=== PATIENT | female | born 1955 | race Caucasian/White ===

== ENCOUNTER 2016-09-21 10:05 | Observation (INO) ==
--- NOTE | 2016-09-21 10:28 | Emergency Department Note ---
Disposition Clinical Impression: Colitis, Tachycardia, Abdominal pain, Hypokalemia, Uterine fibroid, Hiatal hernia, Cough Disposition: Admitted As Inpatient Condition: Good General Adult HPI - General Chief complaint: ED Abdominal Pain Stated complaint: Diverticulitis/sick to my stomach Time Seen by Provider: 09/21/16 10:27 Source: patient Limitations: no limitations - History of Present Illness HPI Narrative: 60-year-old female reports in the outpatient clinic, there is concern for potential diverticulitis. The patient states she has had recurrent diarrhea or bloody stool for the last 2 weeks but has had increasing pain over the last day or 2. She reports she ate some Cod and green beans on Monday and then developed vomiting. She has had persistent abdominal discomfort. She has not had recurrent emesis however. No bloody emesis. She states she has a history of diverticulitis and colitis and has had to be admitted to the hospital for same. There are reports of fever. The patient has had a slight cough but no chest pain or shortness of breath. She describes lower abdominal pain more in the midline. There is no history of anticoagulant therapy. No trauma or acute back pain or syncope. The patient denies any recent travel or change in dietary habits. There is no history of urinary symptoms or acute back pain. Onset (ago): day(s) Pain Scale: 0 - Related Data Home Medications Medication Instructions Recorded Confirmed Bimatoprost [Lumigan] 1 appl BOTH EYES DAILY 09/21/16 09/21/16 Brinzolamide 1% [Azopt] 1 drop BOTH EYES TID 09/21/16 09/21/16 Calcium Carbonate/Vitamin D3 1 tab PO BID 09/21/16 09/21/16 [Calcium 1,000 + D3 Caplet] Cholecalciferol (Vitamin D3) 1,000 unit PO BID 09/21/16 09/21/16 [Vitamin D] Dexlansoprazole [Dexilant] 60 mg PO DAILY 09/21/16 09/21/16 FLUoxetine HCl [PROzac] 20 mg PO BID 09/21/16 09/21/16 Lamotrigine [Lamictal] 50 mg PO DAILY 09/21/16 09/21/16 Mesalamine [Pentasa] 1,000 mg PO TID 09/21/16 09/21/16 Raloxifene [Evista] 60 mg PO DAILY 09/21/16 09/21/16 Telmisartan/Hydrochlorothiazid 1 tab PO DAILY 09/21/16 09/21/16 [Micardis Hct 40-12.5 mg Tablet] Allergies Allergy/AdvReac Type Severity Reaction Status Date / Time Minocycline [From Minocin] Allergy Severe Hypertensio Verified 09/21/16 14:13 n All systems ED: reviewed and negative except as stated. Past Medical History - Past Medical History Medical history: Reports: GERD, hypertension, other Surgical history: Reports: breast surgery Psychiatric history: Reports: no psych history - Social History Smoking Status: Never smoker Smokeless Tobacco Status: No Alcohol use: Reports: none Drug use: Reports: none Physical Exam - General Limitations: no limitations General appearance: alert, in no apparent distress - Head Head exam: atraumatic, normocephalic, normal inspection - Eye Eye exam: Present: normal appearance, PERRL, EOMI - ENT ENT exam: normal exam, normal oropharynx, mucous membranes moist - Neck Neck exam: Present: normal inspection, full ROM, trachea midline - Chest Chest inspection: Present: symmetric chest wall rise. Absent: tenderness - Respiratory Respiratory exam: Present: normal lung sounds bilaterally. Absent: respiratory distress - Cardiovascular Cardiovascular exam: Present: regular rate, normal rhythm, normal heart sounds - Abdominal Exam Abdominal exam: Present: soft, tenderness, normal bowel sounds. Absent: distention, guarding, rebound, rigidity, trauma, pulsatile mass - Extremities Exam Extremities exam: Present: normal inspection, full ROM. Absent: tenderness, normal capillary refill, pedal edema, joint swelling, calf tenderness - Back Exam Back exam: Present: normal inspection, full ROM. Absent: tenderness, CVA tenderness (R), CVA tenderness (L), vertebral tenderness - Neurological Exam Neurological exam: Present: alert, oriented X3, CN II-XII intact. Absent: motor sensory deficit - Psychiatric Psychiatric exam: Present: normal affect, normal mood - Skin Skin exam: Present: warm, dry, intact, normal color. Absent: rash, cyanosis, diaphoresis, erythema, pallor, mottled Course Vital Signs Temperature 99.4 F 09/21/16 10:06 Pulse Rate 99 09/21/16 10:06 Respiratory Rate 16 09/21/16 10:06 Blood Pressure 108/69 09/21/16 10:06 O2 Sat by Pulse Oximetry 96 09/21/16 10:06 Temperature 99.9 F H 09/21/16 14:41 Pulse Rate 92 09/21/16 14:41 Respiratory Rate 14 09/21/16 14:41 Blood Pressure 108/71 09/21/16 14:41 O2 Sat by Pulse Oximetry 94 L 09/21/16 14:41 Oxygen Delivery Oxygen Delivery Room Air Medical Decision Making - MDM Narrative Medical decision making narrative: The patient was given IV fluids in the ED. She remained somewhat tachycardic. She appears to have colitis. Flagyl and Cipro were ordered. A second liter of fluid was ordered. Potassium chloride by mouth as well. The patient is currently stable. Given that she is elderly, appears to have a low-grade fever and tachycardia with what appears to be a source of infection I have discussed the case with the hospitalist fashion illustrator who has accepted the patient to their care. The patient's serum lactate is negative. She does not appear to meet sepsis protocol at this time. Clostridium testing has been ordered. - Lab Data Lab results reviewed: Yes I reviewed the patient's lab results. Result diagrams: 09/21/16 10:33 09/21/16 10:33 Lab Results 09/21/16 09/21/16 09/21/16 Range/Units 10:33 10:33 10:33 WBC 8.8 (4.3-11.1) K/mcL RBC 5.38 H (3.82-4.97) M/mcL Hgb 15.4 (11.5-15.4) g/dL Hct 46.0 H (35.3-44.9) % MCV 85.5 (83.0-100.0) fL MCH 28.6 (28.0-33.3) pg MCHC 33.5 (31.6-35.5) g/dL RDW 13.3 (11.5-14.5) % Plt Count 354 (140-400) K/mcL MPV 9.6 (9.4-12.4) fL Immature Gran % 0.6 (0-4) % Seg Neutrophils % 81.7 % Lymphocytes % 13.7 % Monocytes % 2.7 % Eosinophils % 1.1 % Basophils % 0.2 % Neutrophils # 7.1 (1.6-8.9) K/mcL Lymphocytes # 1.2 (0.6-4.6) K/mcL Monocytes # 0.2 (0.0-1.3) K/mcL Eosinophils # 0.1 (0.0-0.6) K/mcL Basophils # 0.0 (0.0-0.2) K/mcL Sodium 138 (136-145) mEq/L Potassium 3.2 L (3.5-4.5) mEq/L Chloride 100 (98-109) mEq/L Carbon Dioxide 26 (19-29) mEq/L BUN 14 (7-20) mg/dL Creatinine 0.98 (0.57-1.11) mg/dL Est GFR ( Amer) > 60 (> 60) Est GFR (Non-Af Amer) 58 L (> 60) BUN/Creatinine Ratio 14 (6-26) Glucose 97 (70-99) mg/dL Calculated Osmolality 286 (280-300) Calcium 9.1 (8.6-10.8) mg/dL Total Bilirubin 0.7 (0.2-1.2) mg/dL Direct Bilirubin 0.3 (0.0-0.5) mg/dL Indirect Bilirubin 0.4 (0.0-1.2) mg/dL AST 21 (5-34) Units/L ALT 22 (0-55) Units/L Alkaline Phosphatase 72 (38-126) Units/L C-Reactive Protein 26 H (Less than 5) mg/L Serum Total Protein 7.7 (6.0-8.3) g/dL Albumin 4.0 (3.5-5.0) g/dL Globulin 3.7 H (2.4-3.5) g/dL Albumin/Globulin Ratio 1.1 (1.1-2.2) Lipase 17 (8-78) Units/L Urine Color Yellow (Yellow) Urine Clarity Cloudy A (Clear) Urine pH 6.0 (5.0-8.0) pH Units Ur Specific [place] 1.024 (1.010-1.025) Urine Protein Negative (Neg-Trace) mg/dL Urine Glucose (UA) Normal (Normal) mg/dL Urine Ketones Negative (Negative) mg/dL Urine Blood Negative (Negative) Urine Nitrite Negative (Negative) Urine Bilirubin Negative (Negative) Urine Urobilinogen Normal (Normal) mg/dL Ur Leukocyte Esterase Negative (Negative) Urine Microscopic RBC 0-3 (0-3) per hpf Urine Microscopic WBC 0-3 (0-3) per hpf Ur Squamous Epith Cells Many H (None-Few) per lpf Urine Bacteria None Seen (None-Few) per hpf Hyaline Casts None Seen (None-Few) per lpf Ur Culture Indicated? NO (NO) Specimen Rejected 09/21/16 Range/Units 11:05 WBC (4.3-11.1) K/mcL RBC (3.82-4.97) M/mcL Hgb (11.5-15.4) g/dL Hct (35.3-44.9) % MCV (83.0-100.0) fL MCH (28.0-33.3) pg MCHC (31.6-35.5) g/dL RDW (11.5-14.5) % Plt Count (140-400) K/mcL MPV (9.4-12.4) fL Immature Gran % (0-4) % Seg Neutrophils % % Lymphocytes % % Monocytes % % Eosinophils % % Basophils % % Neutrophils # (1.6-8.9) K/mcL Lymphocytes # (0.6-4.6) K/mcL Monocytes # (0.0-1.3) K/mcL Eosinophils # (0.0-0.6) K/mcL Basophils # (0.0-0.2) K/mcL Sodium (136-145) mEq/L Potassium (3.5-4.5) mEq/L Chloride (98-109) mEq/L Carbon Dioxide (19-29) mEq/L BUN (7-20) mg/dL Creatinine (0.57-1.11) mg/dL Est GFR ( Amer) (> 60) Est GFR (Non-Af Amer) (> 60) BUN/Creatinine Ratio (6-26) Glucose (70-99) mg/dL Calculated Osmolality (280-300) Calcium (8.6-10.8) mg/dL Total Bilirubin (0.2-1.2) mg/dL Direct Bilirubin (0.0-0.5) mg/dL Indirect Bilirubin (0.0-1.2) mg/dL AST (5-34) Units/L ALT (0-55) Units/L Alkaline Phosphatase (38-126) Units/L C-Reactive Protein (Less than 5) mg/L Serum Total Protein (6.0-8.3) g/dL Albumin (3.5-5.0) g/dL Globulin (2.4-3.5) g/dL Albumin/Globulin Ratio (1.1-2.2) Lipase (8-78) Units/L Urine Color (Yellow) Urine Clarity (Clear) Urine pH (5.0-8.0) pH Units Ur Specific [place] (1.010-1.025) Urine Protein (Neg-Trace) mg/dL Urine Glucose (UA) (Normal) mg/dL Urine Ketones (Negative) mg/dL Urine Blood (Negative) Urine Nitrite (Negative) Urine Bilirubin (Negative) Urine Urobilinogen (Normal) mg/dL Ur Leukocyte Esterase (Negative) Urine Microscopic RBC (0-3) per hpf Urine Microscopic WBC (0-3) per hpf Ur Squamous Epith Cells (None-Few) per lpf Urine Bacteria (None-Few) per hpf Hyaline Casts (None-Few) per lpf Ur Culture Indicated? (NO) Specimen Rejected Hemolyzed - Radiology Data Radiology results reviewed: Yes I reviewed the patient's radiology results.
[2016-09-21] MEDS ORDERED: 0.9 % Sodium Chloride 1,000 ML IVC ONE ×2 (10:29→13:25)
[2016-09-21 10:49] LABS: Basophils % 0.2 %; Eosinophils # 0.1 K/mcL (0.0-0.6); Eosinophils % 1.1 %; Hemoglobin 15.4 g/dL (11.5-15.4); Immature Granulocytes % 0.6 % (0-4); Lymphocytes # 1.2 K/mcL (0.6-4.6); Lymphocytes % 13.7 %; Mean Corpuscular HGB Conc 33.5 g/dL (31.6-35.5); Mean Corpuscular Hemoglobin 28.6 pg (28.0-33.3); Mean Corpuscular Volume 85.5 fL (83.0-100.0); Mean Platelet Volume 9.6 fL (9.4-12.4); Monocytes # 0.2 K/mcL (0.0-1.3); Monocytes % 2.7 %; Neutrophils # 7.1 K/mcL (1.6-8.9); Platelet Count 354 K/mcL (140-400); Red Blood Count 5.38 M/mcL (3.82-4.97); Red Cell Distribution Width 13.3 % (11.5-14.5); Segmented Neutrophils % 81.7 %
[2016-09-21 10:56] LABS: Bilirubin,Urine Negative (Negative); Blood,Urine Negative (Negative); Clarity,Urine Cloudy (Clear); Color,Urine Yellow (Yellow); Glucose,Urine (UA) Normal (Normal); Ketones,Urine Negative (Negative); Leukocyte Esterase,Urine Negative (Negative); Nitrite,Urine Negative (Negative); Protein,Urine Negative (Neg-Trace); Specific Gravity,Urine 1.024 (1.010-1.025); Urobilinogen,Urine Normal (Normal)
[2016-09-21 10:59] LABS: Bacteria,Urine None Seen per hpf (None-Few); Hyaline Casts,Urine None Seen per lpf (None-Few); RBC,Urine 0-3 per hpf (0-3); Squamous Epithelial Cell,Urine Many per lpf (None-Few); WBC,Urine 0-3 per hpf (0-3)
[2016-09-21 11:05] LABS: Alanine Aminotransferase 22 Units/L (0-55); Albumin/Globulin Ratio 1.1 (1.1-2.2); Alkaline Phosphatase 72 Units/L (38-126); Aspartate Amino Transferase 21 Units/L (5-34); BUN/Creatinine Ratio 14 (6-26); Bilirubin,Direct 0.3 mg/dL (0.0-0.5); Bilirubin,Indirect 0.4 mg/dL (0.0-1.2); Bilirubin,Total 0.7 mg/dL (0.2-1.2); Blood Urea Nitrogen 14 mg/dL (7-20); C-Reactive Protein 26 mg/L (Less than 5); Calcium 9.1 mg/dL (8.6-10.8); Carbon Dioxide 26 mEq/L (19-29); Chloride 100 mEq/L (98-109); Globulin 3.7 g/dL (2.4-3.5); Glucose 97 mg/dL (70-99); Lipase 17 Units/L (8-78); Osmolality,Calculated 286 (280-300); Potassium 3.2 mEq/L (3.5-4.5); Sodium 138 mEq/L (136-145); Total Protein 7.7 g/dL (6.0-8.3); eGFR For African Americans > 60 (> 60); eGFR For Non-African Americans 58 (> 60)
[2016-09-21] MEDS ORDERED: metroNIDAZOLE 500 MG TABLET PO ONE (13:24)
[2016-09-21] MEDS ORDERED: FLU VACC QS2016-17 36MOS UP/PF 0.5 ML SYRINGE IM ONE (14:29)
[2016-09-21] MEDS ORDERED: Potassium Chloride 20 MEQ, Lidocaine 1% 2 ML in D5% in Water 250 ML IVPB ONE (15:19)
[2016-09-21 16:00] LABS: Magnesium 1.9 mg/dL (1.6-2.6)
[2016-09-21] MEDS ORDERED: Naloxone 0.4 MG/ML INJ IVP PRN (16:35)
[2016-09-21] MEDS ORDERED: *HR* Morphine 2 MG/ML SYRINGE IVP PRN (16:38)
[2016-09-21] MEDS ORDERED: Ondansetron 4 MG/2 ML VIAL IVP PRN (16:38)
[2016-09-21] MEDS ORDERED: Acetaminophen 325 MG TABLET PO PRN (16:38)
--- NOTE | 2016-09-21 16:43 | Internal Med History&Physical ---
Date of Encounter: 09/21/16 Time of Encounter: 16:00 Assessment and Plan (1) Abdominal pain Current visit: Yes Status: Acute Acute flare of chronic colitis. Patient follows up with Dr. Burciaga for history of chronic colitis and takes Pentasa. CT of the abdomen and pelvis revealed marked wall edema and mucosal enhancement in the sigmoid colon, colonic diverticulosis. No diverticulitis, no allergies and phlegm, no abscess. wbc 8. normal lactic acid. Given the severity of colonic wall edema I will continue IV Flagyl and ciprofloxacin. IVF fluids. Nothing by mouth. clear liquids in the morning. Qualifiers: Abdominal location: lower abdomen, unspecified Qualified Code(s): R10.30 - Lower abdominal pain, unspecified (2) Acute colitis Current visit: Yes Status: Acute Plan as above. (3) HTN (hypertension) Current visit: Yes Status: Acute Holding home medications due to normal blood pressure. Qualifiers: Hypertension type: essential hypertension Qualified Code(s): I10 - Essential (primary) hypertension (4) Cough Current visit: Yes Status: Acute Secondary to hiatal hernia. (5) Hiatal hernia Current visit: Yes Status: Acute IV PPI. (6) Hypokalemia Current visit: Yes Status: Acute Replete . normal Mag (7) Uterine fibroid Current visit: No Status: Chronic Qualifiers: Uterine leiomyoma location: unspecified location Qualified Code(s): D25.9 - Leiomyoma of uterus, unspecified Internal Medicine - H&P: HPI Chief complaint: Abdominal pain for 2 weeks. Admitted From: Home Plans for Post Hospital Care: Home History of present illness: Ms. Dasilva is a 60 year old female with past medical history of hypertension and chronic colitis on Pentasa at home who presented with a chief complaint of abdominal pain for the past 2 weeks. Positive nausea and vomiting with poor oral intake. Intermittent bloody stools that is chronic. No chest pain. No shortness of breath. no other bleeding. No urinary complaints. Dry cough, only after vomiting. She reports multiple episodes of acute colitis in the past for which she has been hospitalized in [facility] facilities. Past Med Surg Social Fam HX - Past Medical History Medical history: GERD, hypertension, other Psychiatric history: no psych history - Past Surgical History Surgical History: breast surgery - Social History Smoking Status: Never smoker Smokeless Tobacco Status: No Alcohol use: none Drug use: none - Family History Mother Hx Family Cardiac Disorders: Yes (htn) Internal Medicine - H&P: Meds Bimatoprost [Lumigan] 1 appl BOTH EYES DAILY 09/21/16 [History] Brinzolamide 1% [Azopt] 1 drop BOTH EYES TID 09/21/16 [History] Calcium Carbonate/Vitamin D3 [Calcium 1,000 + D3 Caplet] 1 tab PO BID 09/21/16 [ History] Cholecalciferol (Vitamin D3) [Vitamin D] 1,000 unit PO BID 09/21/16 [History] Dexlansoprazole [Dexilant] 60 mg PO DAILY 09/21/16 [History] FLUoxetine HCl [PROzac] 20 mg PO BID 09/21/16 [History] Lamotrigine [Lamictal] 50 mg PO DAILY 09/21/16 [History] Mesalamine [Pentasa] 1,000 mg PO TID 09/21/16 [History] Raloxifene [Evista] 60 mg PO DAILY 09/21/16 [History] Telmisartan/Hydrochlorothiazid [Micardis Hct 40-12.5 mg Tablet] 1 tab PO DAILY 09/21/16 [History] Allergies Minocycline [From Minocin] Allergy (Severe, Verified 09/21/16 14:13) Hypertension All Systems PM: A 10-system review of systems was performed and is negative for pertinent findings except as documented above in the HPI. - Constitutional Vitals: Temp Pulse Resp BP Pulse Ox 99.9 F H 92 14 108/71 94 L 09/21/16 14:41 09/21/16 14:41 09/21/16 14:41 09/21/16 14:41 09/21/16 14:41 General appearance: Present: cooperative, A&O X 3, pleasant, no acute distress, answers questions appropriately - Eye Eye exam: Present: PERRL. Absent: sclera anicteric - ENT ENT exam: Present: mucous membranes moist - Neck Neck exam general surgery: Present: supple, trachea midline. Absent: lymphadenopathy - Respiratory Respiratory exam: Present: CTAB - Cardiovascular Cardiovascular exam: Present: RRR - GI/Abdominal GI/Abdominal exam: Present: normal bowel sounds, soft, tenderness. Absent: distended - Extremities Exam Extremities exam: Absent: pedal edema - Back Exam Back exam: Absent: CVA tenderness (L), CVA tenderness (R) - Neurological Exam Neurological exam: Present: alert, oriented X3 - Skin Skin exam: Absent: rash Internal Med - H&P Results - Labs CBC & Chem 7: 09/21/16 10:33 09/21/16 10:33
[2016-09-21] MEDS: Ringers Solution, Lactated 1,000 ML IVC SCH (17:45)
[2016-09-21] MEDS: Pantoprazole 40 MG VIAL IVP SCH (17:45)
[2016-09-21] MEDS: FLUoxetine 20 MG CAPSULE PO SCH (21:06)
[2016-09-21] MEDS: Latanoprost 2.5 ML BOTTLE BOTH EYES SCH (21:07)
[2016-09-21] MEDS: MetroNIDAZOLE 500 MG/100 ML 500 MG/100 ML BAG IVPB SCH (21:07)
[2016-09-21] MEDS: Brinzolamide 1% 10 ML BOTTLE BOTH EYES SCH (21:07)
[2016-09-21] MEDS: Mesalamine 250 MG CAPSULE.ER PO SCH (21:09)
[2016-09-22 05:14] LABS: Basophils % 0.3 %; Eosinophils # 0.1 K/mcL (0.0-0.6); Immature Granulocytes % 0.6 % (0-4); Mean Corpuscular HGB Conc 33.7 g/dL (31.6-35.5); Mean Corpuscular Hemoglobin 28.9 pg (28.0-33.3); Mean Corpuscular Volume 85.8 fL (83.0-100.0); Mean Platelet Volume 9.4 fL (9.4-12.4); Monocytes # 0.3 K/mcL (0.0-1.3); Monocytes % 4.8 %; Neutrophils # 5.3 K/mcL (1.6-8.9); Platelet Count 255 K/mcL (140-400); Red Blood Count 4.43 M/mcL (3.82-4.97); Red Cell Distribution Width 13.2 % (11.5-14.5); Segmented Neutrophils % 78.3 %
[2016-09-22 05:17] LABS: Hemoglobin 12.8 g/dL (11.5-15.4); INR 1.3; Prothrombin Time 13.9 Seconds (9.4-12.1)
[2016-09-22 05:25] LABS: Alanine Aminotransferase 17 Units/L (0-55); Albumin/Globulin Ratio 1.1 (1.1-2.2); Alkaline Phosphatase 52 Units/L (38-126); Aspartate Amino Transferase 18 Units/L (5-34); BUN/Creatinine Ratio 9 (6-26); Bilirubin,Total 0.4 mg/dL (0.2-1.2); Blood Urea Nitrogen 7 mg/dL (7-20); Carbon Dioxide 23 mEq/L (19-29); Chloride 106 mEq/L (98-109); Globulin 2.7 g/dL (2.4-3.5); Glucose 100 mg/dL (70-99); Magnesium 1.6 mg/dL (1.6-2.6); Osmolality,Calculated 286 (280-300); Potassium 3.2 mEq/L (3.5-4.5); Sodium 139 mEq/L (136-145); Total Protein 5.7 g/dL (6.0-8.3); eGFR For African Americans > 60 (> 60); eGFR For Non-African Americans > 60 (> 60)
[2016-09-22] MEDS: MetroNIDAZOLE 500 MG/100 ML 500 MG/100 ML BAG IVPB SCH ×3 (05:42→20:53)
[2016-09-22] MEDS: Pantoprazole 40 MG VIAL IVP SCH (05:43)
[2016-09-22] MEDS: Brinzolamide 1% 10 ML BOTTLE BOTH EYES SCH ×3 (08:43→20:54)
[2016-09-22] MEDS: Mesalamine 250 MG CAPSULE.ER PO SCH ×3 (08:44→20:54)
[2016-09-22] MEDS: FLUoxetine 20 MG CAPSULE PO SCH ×2 (08:45→20:53)
[2016-09-22] MEDS ORDERED: BIMATOPROST BOTH EYES SCH (09:00)
[2016-09-22] MEDS ORDERED: lamoTRIgine 25 MG TABLET PO SCH ×2 (09:00→21:00)
[2016-09-22] MEDS: Ringers Solution, Lactated 1,000 ML IVC SCH (11:04)
[2016-09-22] MEDS ORDERED: Magnesium Sulfate 2 GM in D5% in Water 100 ML IVPB ONE (15:05)
--- NOTE | 2016-09-22 17:06 | Internal Med Progress Note ---
<Hayden Titus Raphael - Last Filed: 09/22/16 20:28> Date of Encounter: 09/22/16 Time of Encounter: 09:30 - Assessment and plan (1) Acute colitis Current Visit: Yes Status: Acute Assessment and plan: Ms. Dasilva has a history of Ulcerative Colitis. She presented with blood per rectum with occasionally fevers and chill, poor oral intake. CT of the abdomen demonstrates inflammation of the colon and distal sigmoid diverticulosis. symptoms improving. Vitals stable since admission. Antibiotics: Ciprofloxacin and Zosyn. Plan: - Advance diet as tolerated. - Continue current antibiotic coverage. - Monitor WBC and H&H with am labs - Continue Pentasa (2) HTN (hypertension) Current Visit: Yes Status: Acute Assessment and plan: Blood pressure stable. Continue monitoring Blood pressure. Qualifiers: Hypertension type: essential hypertension Qualified Code(s): I10 - Essential (primary) hypertension (3) Hiatal hernia Current Visit: Yes Status: Acute Assessment and plan: Patient has a Hiatal hernia seen on imaging. This may be contributing to her GERD. No apparent obstruction. (4) DVT prophylaxis Current Visit: Yes Status: Acute Assessment and plan: Hold anticoagulation with recent GI bleeding. SCDs. - Subjective Interval history: Mrs. Dasilva has been seen and evaluated at patient bedside this am. She says she is feeling better but continues to have a dull ache pain in her abdomen. She denies any blood per rectum today but did have bleeding per rectum over the past 4 days. She says her last bowel movement was on Monday. She was sick and vomiting on Monday. She Has had poor PO intake since monday. She says she has tolerated jellow this morning. She denies any current fevers, chills or sweating but did have these symptoms over the past week. She says she has had episodes like this in the past. - Constitutional Vitals: Temp Pulse Resp BP Pulse Ox 98.7 F 75 16 123/97 97 09/22/16 15:43 09/22/16 15:43 09/22/16 15:43 09/22/16 15:43 09/22/16 15:43 General appearance: Present: cooperative, A&O X 3, pleasant, no acute distress, answers questions appropriately - Head Head exam: Present: atraumatic, normocephalic - Eye Eye exam: Present: PERRL, conjuntiva pink, sclera anicteric Pupils: Present: PERRL - Neck Neck exam general surgery: Present: supple, trachea midline. Absent: lymphadenopathy - Respiratory Respiratory exam: Present: CTAB. Absent: accessory muscle use, rales, rhonchi, wheezes - Cardiovascular Cardiovascular exam: Present: RRR, +S1, +S2. Absent: diastolic murmur, gallop, rubs, systolic murmur - GI/Abdominal GI/Abdominal exam: Present: normal bowel sounds, soft, tenderness, no peritoneal signs. Absent: distended Additional comments: slight tenderness to palpation of the abdomen diffusely without guarding. - Extremities Exam Extremities exam: Present: warm, radial pulses palpable and symetrical. Absent : calf tenderness, cyanotic, pedal edema - Neurological Exam Neurological exam: Present: alert, oriented X3, no focal deficits. Absent: pronater drift, facial droop, speech deficit - Psychiatric Psychiatric exam: Present: normal affect, normal mood - Skin Skin exam: Present: dry, intact Internal Medicine: Result - Labs CBC & Chem 7: 09/22/16 05:00 09/22/16 05:00 Labs: Short CBC 09/22/16 Range/Units 05:00 WBC 6.8 (4.3-11.1) K/mcL Hgb 12.8 D (11.5-15.4) g/dL Hct 38.0 (35.3-44.9) % Plt Count 255 (140-400) K/mcL Neutrophils # 5.3 (1.6-8.9) K/mcL BMP 09/22/16 05:00 Sodium 139 Potassium 3.2 L Chloride 106 Carbon Dioxide 23 BUN 7 Creatinine 0.80 Glucose 100 H Calcium 8.0 L Liver Function 09/22/16 Range/Units 05:00 Total Bilirubin 0.4 (0.2-1.2) mg/dL AST 18 (5-34) Units/L ALT 17 (0-55) Units/L Alkaline Phosphatase 52 (38-126) Units/L Albumin 3.0 L D (3.5-5.0) g/dL - ABG Interpretation ABG results: PT/INR, D-dimer PT 13.9 Seconds (9.4-12.1) H 09/22/16 05:00 Consult Discharge Plan - Plan Referrals: Osvaldo Burciaga DO [Primary Care Provider] - <Bradley Hartman Lynnette - Last Filed: 09/23/16 07:25> Date of Encounter: 09/23/16 - Constitutional Vitals: Temp Pulse Resp BP Pulse Ox 98.4 F 79 16 107/68 94 L 09/23/16 04:39 09/23/16 04:39 09/23/16 04:39 09/23/16 04:39 09/23/16 04:39 Internal Medicine: Result - Labs CBC & Chem 7: 09/23/16 04:55 09/23/16 04:55 Labs: Short CBC 09/23/16 Range/Units 04:55 WBC 6.0 (4.3-11.1) K/mcL Hgb 13.2 (11.5-15.4) g/dL Hct 39.2 (35.3-44.9) % Plt Count 281 (140-400) K/mcL Neutrophils # 4.5 (1.6-8.9) K/mcL BMP 09/23/16 04:55 Sodium 138 Potassium 3.3 L Chloride 105 Carbon Dioxide 24 BUN 7 Creatinine 0.84 Glucose 103 H Calcium 8.1 L Liver Function 09/23/16 Range/Units 04:55 Total Bilirubin 0.2 (0.2-1.2) mg/dL AST 19 (5-34) Units/L ALT 16 (0-55) Units/L Alkaline Phosphatase 53 (38-126) Units/L Albumin 3.1 L (3.5-5.0) g/dL - ABG Interpretation ABG results: PT/INR, D-dimer PT 13.9 Seconds (9.4-12.1) H 09/22/16 05:00 - Attending Attestation I examined this patient and my medical decision-making was reviewed with the TIME CHECKER/PA/Advanced Practice Nurse/Resident Physician. I agree with the documented findings, disposition and treatment plan as described except to the extent set forth below. Continue with cipro and flagyl (patient not on zosyn). Advance diet as tolerated. D/W patient.
[2016-09-22] MEDS: lamoTRIgine 25 MG TABLET PO SCH (20:53)
[2016-09-22] MEDS: Latanoprost 2.5 ML BOTTLE BOTH EYES SCH (20:54)
[2016-09-23] MEDS: MetroNIDAZOLE 500 MG/100 ML 500 MG/100 ML BAG IVPB SCH ×3 (05:26→20:55)
[2016-09-23 06:15] LABS: Basophils % 0.2 %; Eosinophils # 0.1 K/mcL (0.0-0.6); Eosinophils % 0.8 %; Hematocrit 39.2 % (35.3-44.9); Hemoglobin 13.2 g/dL (11.5-15.4); Immature Granulocytes % 0.3 % (0-4); Lymphocytes # 1.1 K/mcL (0.6-4.6); Lymphocytes % 18.1 %; Mean Corpuscular HGB Conc 33.7 g/dL (31.6-35.5); Mean Corpuscular Hemoglobin 28.5 pg (28.0-33.3); Mean Corpuscular Volume 84.7 fL (83.0-100.0); Monocytes # 0.4 K/mcL (0.0-1.3); Monocytes % 5.8 %; Neutrophils # 4.5 K/mcL (1.6-8.9); Platelet Count 281 K/mcL (140-400); Red Blood Count 4.63 M/mcL (3.82-4.97); Red Cell Distribution Width 13.4 % (11.5-14.5); Segmented Neutrophils % 74.8 %
[2016-09-23 06:38] LABS: Alanine Aminotransferase 16 Units/L (0-55); Albumin 3.1 g/dL (3.5-5.0); Alkaline Phosphatase 53 Units/L (38-126); Aspartate Amino Transferase 19 Units/L (5-34); BUN/Creatinine Ratio 8 (6-26); Bilirubin,Total 0.2 mg/dL (0.2-1.2); Blood Urea Nitrogen 7 mg/dL (7-20); Calcium 8.1 mg/dL (8.6-10.8); Carbon Dioxide 24 mEq/L (19-29); Chloride 105 mEq/L (98-109); Glucose 103 mg/dL (70-99); Magnesium 2.3 mg/dL (1.6-2.6); Osmolality,Calculated 284 (280-300); Potassium 3.3 mEq/L (3.5-4.5); Sodium 138 mEq/L (136-145); Total Protein 6.1 g/dL (6.0-8.3); eGFR For African Americans > 60 (> 60); eGFR For Non-African Americans > 60 (> 60)
[2016-09-23] MEDS: FLUoxetine 20 MG CAPSULE PO SCH ×2 (10:15→20:56)
[2016-09-23] MEDS: Mesalamine 250 MG CAPSULE.ER PO SCH ×3 (10:17→20:56)
[2016-09-23] MEDS: Brinzolamide 1% 10 ML BOTTLE BOTH EYES SCH ×3 (10:18→20:57)
[2016-09-23] MEDS: Pantoprazole 40 MG VIAL IVP SCH (10:18)
--- NOTE | 2016-09-23 13:44 | Internal Med Progress Note ---
<Hayden Titus Raphael - Last Filed: 09/23/16 13:42> Date of Encounter: 09/23/16 Time of Encounter: 08:15 - Assessment and plan (1) Acute colitis Current Visit: Yes Status: Acute Assessment and plan: Ms. Dasilva has a history of Ulcerative Colitis. She presented with blood per rectum with occasionally fevers and chill, poor oral intake. CT of the abdomen demonstrates inflammation of the colon and distal sigmoid diverticulosis. Her symptoms continue to improve, no blood per rectum, still no bowel movement, tolerating clear liquids by mouth. No leukocytosis, renal function stable. Antibiotics: Ciprofloxacin and Zosyn. Plan: - Advance diet as tolerated. - Continue current antibiotic coverage. - Monitor WBC and H&H with am labs - Continue Pentasa (2) HTN (hypertension) Current Visit: Yes Status: Acute Assessment and plan: Blood pressure stable. Continue monitoring Blood pressure. Qualifiers: Hypertension type: essential hypertension Qualified Code(s): I10 - Essential (primary) hypertension (3) Hiatal hernia Current Visit: Yes Status: Acute Assessment and plan: Patient has a Hiatal hernia seen on imaging. This may be contributing to her GERD. No apparent obstruction. (4) Hypokalemia Current Visit: Yes Status: Acute Assessment and plan: Patient currently has hypokalemia with potassium 3.3 today. She had received by mouth replacement yesterday. Plan: - 40 meq potassium PO daily - monitor with daily labs. (5) DVT prophylaxis Current Visit: Yes Status: Acute Assessment and plan: Hold anticoagulation with recent GI bleeding. SCDs. - Subjective Interval history: Mrs. Dasilva has been seen and evaluated at patient bedside this am. She is laying on her side for which she said she usually lays on her side it is not due to pain. She has not had a bowel movement since prior to admission. She denies any blood per rectum. She denies any lightheadedness dizziness, chest pain, chest pressure, palpitations, shortness of breath, abdominal discomfort currently. She has tolerated her clear liquids without discomfort, nausea or vomiting. She like to advance her diet as tolerated today. - Constitutional Vitals: Temp Pulse Resp BP Pulse Ox 98.2 F 77 16 104/70 95 09/23/16 11:36 09/23/16 11:36 09/23/16 11:36 09/23/16 11:36 09/23/16 11:36 General appearance: Present: cooperative, A&O X 3, pleasant, no acute distress, answers questions appropriately - Head Head exam: Present: atraumatic, normocephalic - Neck Neck exam general surgery: Present: supple, trachea midline. Absent: lymphadenopathy - Respiratory Respiratory exam: Present: CTAB. Absent: accessory muscle use, rales, rhonchi, wheezes - Cardiovascular Cardiovascular exam: Present: RRR, +S1, +S2. Absent: diastolic murmur, gallop, rubs, systolic murmur - GI/Abdominal GI/Abdominal exam: Present: normal bowel sounds, soft, no peritoneal signs. Absent: distended, tenderness - Extremities Exam Extremities exam: Present: warm, radial pulses palpable and symetrical. Absent : calf tenderness, cyanotic, pedal edema - Neurological Exam Neurological exam: Present: alert, oriented X3, no focal deficits. Absent: pronater drift, facial droop, speech deficit - Psychiatric Psychiatric exam: Present: normal affect, normal mood - Skin Skin exam: Present: dry, intact Internal Medicine: Result - Labs CBC & Chem 7: 09/23/16 04:55 09/23/16 04:55 Labs: Short CBC 09/23/16 Range/Units 04:55 WBC 6.0 (4.3-11.1) K/mcL Hgb 13.2 (11.5-15.4) g/dL Hct 39.2 (35.3-44.9) % Plt Count 281 (140-400) K/mcL Neutrophils # 4.5 (1.6-8.9) K/mcL BMP 09/23/16 04:55 Sodium 138 Potassium 3.3 L Chloride 105 Carbon Dioxide 24 BUN 7 Creatinine 0.84 Glucose 103 H Calcium 8.1 L Liver Function 09/23/16 Range/Units 04:55 Total Bilirubin 0.2 (0.2-1.2) mg/dL AST 19 (5-34) Units/L ALT 16 (0-55) Units/L Alkaline Phosphatase 53 (38-126) Units/L Albumin 3.1 L (3.5-5.0) g/dL - ABG Interpretation ABG results: PT/INR, D-dimer PT 13.9 Seconds (9.4-12.1) H 09/22/16 05:00 Consult Discharge Plan - Plan Referrals: Osvaldo Burciaga DO [Primary Care Provider] - <Bradley Hartman - Last Filed: 09/23/16 14:54> Date of Encounter: 09/23/16 - Constitutional Vitals: Temp Pulse Resp BP Pulse Ox 98.2 F 77 16 104/70 95 09/23/16 11:36 09/23/16 11:36 09/23/16 11:36 09/23/16 11:36 09/23/16 11:36 Internal Medicine: Result - Labs CBC & Chem 7: 09/23/16 04:55 09/23/16 04:55 Labs: Short CBC 09/23/16 Range/Units 04:55 WBC 6.0 (4.3-11.1) K/mcL Hgb 13.2 (11.5-15.4) g/dL Hct 39.2 (35.3-44.9) % Plt Count 281 (140-400) K/mcL Neutrophils # 4.5 (1.6-8.9) K/mcL BMP 09/23/16 04:55 Sodium 138 Potassium 3.3 L Chloride 105 Carbon Dioxide 24 BUN 7 Creatinine 0.84 Glucose 103 H Calcium 8.1 L Liver Function 09/23/16 Range/Units 04:55 Total Bilirubin 0.2 (0.2-1.2) mg/dL AST 19 (5-34) Units/L ALT 16 (0-55) Units/L Alkaline Phosphatase 53 (38-126) Units/L Albumin 3.1 L (3.5-5.0) g/dL - ABG Interpretation ABG results: PT/INR, D-dimer PT 13.9 Seconds (9.4-12.1) H 09/22/16 05:00 - Attending Attestation Mrs. May was seen and examined on rounds.. Has tolerated diet. We will advance diet today. Possible discharge tomorrow in a.m. Continue with IV antibiotics.
[2016-09-23] MEDS: lamoTRIgine 25 MG TABLET PO SCH (20:56)
[2016-09-23] MEDS: Latanoprost 2.5 ML BOTTLE BOTH EYES SCH (20:57)
[2016-09-24] MEDS: MetroNIDAZOLE 500 MG/100 ML 500 MG/100 ML BAG IVPB SCH (03:57)
[2016-09-24 05:08] LABS: Basophils % 0.7 %; Eosinophils # 0.2 K/mcL (0.0-0.6); Eosinophils % 3.3 %; Hematocrit 39.3 % (35.3-44.9); Immature Granulocytes % 0.4 % (0-4); Lymphocytes # 1.2 K/mcL (0.6-4.6); Lymphocytes % 25.8 %; Mean Corpuscular HGB Conc 33.1 g/dL (31.6-35.5); Mean Corpuscular Hemoglobin 28.4 pg (28.0-33.3); Mean Platelet Volume 9.5 fL (9.4-12.4); Monocytes # 0.3 K/mcL (0.0-1.3); Neutrophils # 2.9 K/mcL (1.6-8.9); Platelet Count 278 K/mcL (140-400); Red Blood Count 4.57 M/mcL (3.82-4.97); Red Cell Distribution Width 13.8 % (11.5-14.5); Segmented Neutrophils % 63.8 %
[2016-09-24 05:28] LABS: Alanine Aminotransferase 15 Units/L (0-55); Albumin 3.2 g/dL (3.5-5.0); Albumin/Globulin Ratio 1.1 (1.1-2.2); Alkaline Phosphatase 49 Units/L (38-126); Aspartate Amino Transferase 19 Units/L (5-34); BUN/Creatinine Ratio 12 (6-26); Bilirubin,Total 0.3 mg/dL (0.2-1.2); Blood Urea Nitrogen 11 mg/dL (7-20); Calcium 8.1 mg/dL (8.6-10.8); Carbon Dioxide 21 mEq/L (19-29); Chloride 108 mEq/L (98-109); Globulin 2.9 g/dL (2.4-3.5); Glucose 136 mg/dL (70-99); Osmolality,Calculated 287 (280-300); Potassium 3.7 mEq/L (3.5-4.5); Sodium 138 mEq/L (136-145); Total Protein 6.1 g/dL (6.0-8.3); eGFR For African Americans > 60 (> 60); eGFR For Non-African Americans 60 (> 60)
[2016-09-24 06:58] VITALS: BP 119/77
[2016-09-24] MEDS: Mesalamine 250 MG CAPSULE.ER PO SCH (08:10)
[2016-09-24] MEDS: Pantoprazole 40 MG VIAL IVP SCH (08:10)
[2016-09-24] MEDS: FLUoxetine 20 MG CAPSULE PO SCH (08:11)
[2016-09-24] MEDS: Brinzolamide 1% 10 ML BOTTLE BOTH EYES SCH (08:24)
--- NOTE | 2016-09-24 09:19 | Discharge Summary ---
Date of Encounter: 09/24/16 Time of Encounter: 09:15 - Discharge Diagnosis (1) Acute colitis Priority: Primary Status: Acute (2) DVT prophylaxis Priority: Secondary Status: Acute - Discharge Medications Prescriptions: Ciprofloxacin [Cipro] 500 mg PO BID 5 Days MetroNIDAZOLE [Flagyl] 500 mg PO TID 5 Days Home Medications: Bimatoprost [Lumigan] 1 appl BOTH EYES DAILY 09/21/16 [History] Brinzolamide 1% [Azopt] 1 drop BOTH EYES TID 09/21/16 [History] Calcium Carbonate/Vitamin D3 [Calcium 1,000 + D3 Caplet] 1 tab PO BID 09/21/16 [ History] Cholecalciferol (Vitamin D3) [Vitamin D3] 1,000 unit PO BID 09/21/16 [History] Dexlansoprazole [Dexilant] 60 mg PO DAILY 09/21/16 [History] FLUoxetine HCl [Prozac] 20 mg PO BID 09/21/16 [History] Lamotrigine [Lamictal] 50 mg PO DAILY 09/21/16 [History] Mesalamine [Pentasa] 1,000 mg PO TID 09/21/16 [History] Raloxifene [Evista] 60 mg PO DAILY 09/21/16 [History] Telmisartan/Hydrochlorothiazid [Micardis Hct 40-12.5 mg Tablet] 1 tab PO DAILY 09/21/16 [History] Ciprofloxacin [Cipro] 500 mg PO BID 5 Days 09/24/16 [Rx] MetroNIDAZOLE [Flagyl] 500 mg PO TID 5 Days 09/24/16 [Rx] Allergies/Adverse Reactions: Allergies Minocycline [From Minocin] Allergy (Severe, Verified 09/21/16 14:13) Hypertension Date of admission: 09/21/16 13:57 Primary care physician: Osvaldo Burciaga Discharging clinician: Bradley Hartman Anticipated date of discharge: 09/24/16 - Patient Status Disposition: Home, Self-Care Condition: Good Functional capacity at discharge: independent ambulation Overall status at discharge: patient is back to baseline - Discharge Instructions Follow Up With: Osvaldo Burciaga DO [Primary Care Provider] - - Diet and Activity Activity: increase activity as tolerated Diet: advance to your usual diet Interval History: Ms. Dasilva is a 60 year old female with past medical history of hypertension and chronic colitis on Pentasa at home who presented with a chief complaint of abdominal pain for the past 2 weeks. Positive nausea and vomiting with poor oral intake. Intermittent bloody stools that is chronic. No chest pain. No shortness of breath. no other bleeding. No urinary complaints. Dry cough, only after vomiting. She reports multiple episodes of acute colitis in the past for which she has been hospitalized in order facilities. Hospital course: Ms. Dasilva is a 60 year old female admitted due to acute colitis. She has a history of ulcerative colitis and is on treatment with Pentasa. CT of the abdomen revealed findings consistent with colitis. She has tolerated diet accordingly. We continue with therapy with both cipro and flagyl po. She was explained about the plan, she expressed understanding. - Time Spent with Patient Total time spent providing and/or coordinating discharge services: Greater than 30 minutes - Constitutional Vitals: Temp Pulse Resp BP Pulse Ox 97.5 F L 72 16 119/77 97 09/24/16 06:51 09/24/16 06:51 09/24/16 06:51 09/24/16 06:51 09/24/16 06:51 General appearance: Present: cooperative, A&O X 3, pleasant, no acute distress, answers questions appropriately - Head Head exam: Present: atraumatic, normocephalic - Eye Eye exam: Present: PERRL, conjuntiva pink, sclera anicteric Pupils: Present: PERRL - Neck Neck exam general surgery: Present: supple, trachea midline. Absent: lymphadenopathy - Respiratory Respiratory exam: Present: CTAB. Absent: accessory muscle use, rales, rhonchi, wheezes - Cardiovascular Cardiovascular exam: Present: RRR, +S1, +S2. Absent: diastolic murmur, gallop, rubs, systolic murmur - GI/Abdominal GI/Abdominal exam: Present: normal bowel sounds, soft, no peritoneal signs. Absent: distended, tenderness - Extremities Exam Extremities exam: Present: warm, radial pulses palpable and symetrical. Absent : calf tenderness, cyanotic, pedal edema - Neurological Exam Neurological exam: Present: CN II-XII intact, oriented X3, no focal deficits. Absent: pronater drift, facial droop, speech deficit - Skin Skin exam: Present: dry, intact
== END 2016-09-24 10:50 | disposition home or self-care (01) ==
LOC: 3ANU 10:05 → EMEROO 10:05 → 3ANU 14:13
PROVIDERS: ADMIT Internal Medicine; ATTEND Internal Medicine